=== PATIENT | female | born 1990 | race African-American/Black ===

== ENCOUNTER 2016-10-01 13:45 | Emergency (ER) | payer SELFPAY ==
[2016-10-01 13:50] VITALS: BP 159/103; PULSE 94; TEMP 99.1; BMI 34.5
[2016-10-01] MEDS ORDERED: SODIUM CHLORIDE 1,000 ML IV STA (14:25)
[2016-10-01] MEDS ORDERED: METOCLOPRAMIDE HCL INJECTION 10 MG/2 ML VIAL IVPB ONE (14:25)
--- NOTE | 2016-10-01 14:25 | PDOC ---
History of Present Illness - General Chief Complaint: Headache Stated Complaint: HEADACHE Time Seen by Provider: 10/01/16 13:58 History Source: Patient Exam Limitations: No Limitations - History of Present Illness Initial Comments: 26 yo F no PMH presents with headache for past 1 day. Headache localizes to the R parietal area. No associated N/V, photophobia, phonophobia, weakness, numbness. She has not had similar headaches in the past. She states she has been under high stress- she is having a very large wedding next week, and she also works nights, often getting very minimal sleep (2 hours). Her aunt checked her blood pressure this morning and noted that it was high, so she came to be evaluated. Past History - Past Medical History Allergies/Adverse Reactions: Allergies Allergy/AdvReac Type Severity Reaction Status Date / Time No Known Allergies Allergy Verified 10/01/16 14:44 Home Medications: Ambulatory Orders NK [No Known Home Medication] 10/01/16 Other medical history: DENIES - Psycho/Social/Smoking Cessation Hx Anxiety: No Suicidal Ideation: No Smoking History: Never smoked Hx Alcohol Use: No Drug/Substance Use Hx: No Substance Use Type: None Review of Systems - Review of Systems Able to Perform ROS?: Yes Comments:: GENERAL/CONSTITUTIONAL: No fever or chills. No weakness. HEAD, EYES, EARS, NOSE AND THROAT: No change in vision. No ear pain or discharge. No sore throat. CARDIOVASCULAR: No chest pain or shortness of breath. RESPIRATORY: No cough, wheezing, or hemoptysis. GASTROINTESTINAL: No nausea, vomiting, diarrhea or constipation. GENITOURINARY: No dysuria, frequency, or change in urination. MUSCULOSKELETAL: No joint or muscle swelling or pain. No neck or back pain. SKIN: No rash NEUROLOGIC: +Headache, vertigo, loss of consciousness, or change in strength/ sensation. ENDOCRINE: No increased thirst. No abnormal weight change. HEMATOLOGIC/LYMPHATIC: No anemia, easy bleeding, or history of blood clots. ALLERGIC/IMMUNOLOGIC: No hives or skin allergy. *Physical Exam - Vital Signs Last Vital Signs Temp Pulse Resp BP Pulse Ox 99.1 F 94 H 18 159/103 99 10/01/16 13:47 10/01/16 13:47 10/01/16 13:47 10/01/16 13:47 10/01/16 13:47 - Physical Exam Comments: GENERAL: Awake, alert, and fully oriented, in no acute distress HEAD: No signs of trauma EYES: PERRLA, EOMI, sclera anicteric, conjunctiva clear ENT: Auricles normal inspection, hearing grossly normal, nares patent, oropharynx clear without exudates. Moist mucosa NECK: Normal ROM, supple, no lymphadenopathy, JVD, or masses LUNGS: Breath sounds equal, clear to auscultation bilaterally. No wheezes, and no crackles HEART: Regular rate and rhythm, normal S1 and S2, no murmurs, rubs or gallops ABDOMEN: Soft, nontender, normoactive bowel sounds. No guarding, no rebound. No masses EXTREMITIES: Normal range of motion, no edema. No clubbing or cyanosis. No cords , erythema, or tenderness NEUROLOGICAL: Cranial nerves II through XII grossly intact. Normal speech, normal gait SKIN: Warm, Dry, normal turgor, no rashes or lesions noted. ED Treatment Course - LABORATORY CBC & Chemistry Diagram: 10/01/16 14:20 10/01/16 14:20 Medical Decision Making - Medical Decision Making 10/01/16 15:54 Pt reports improvement in symptoms. Reglan is almost finished infusing. Will DC when complete. *DC/Admit/Observation/Transfer Diagnosis at time of Disposition: Headache Qualifiers: Headache type: unspecified Headache chronicity pattern: acute headache Intractability: not intractable Qualified Code(s): R51 - Headache - Discharge Dispostion Disposition: HOME Condition at time of disposition: Stable Admit: No - Patient Instructions Printed Discharge Instructions: DI for Headache
[2016-10-01 14:54] LABS: ANION GAP 4 (8-16); CALCIUM 8.8 mg/dl (8.4-10.2); CO2 26 mmol/L (22-28); CREATININE 0.7 mg/dl (0.6-1.3); GLUCOSE,RANDOM 132 mg/dl (74-106)
[2016-10-01] MEDS ORDERED: KETOROLAC TROMETHAMINE 30 MG/1 ML VIAL IVPUSH ONE (14:58)
[2016-10-01 14:59] LABS: BASOPHIL 1.1 % (0-2.0); EOSINOPHIL 1.5 % (0-4.5); MCH 27.5 pg (25.7-33.7); MCHC 33.4 g/dl (32.0-36.0); MEAN CELL VOLUME 82.3 fl (80-96); MEAN PLT VOLUME 8.3 fl (7.5-11.1); NEUTROPHILS 51.6 % (42.8-82.8); PLATELET COUNT 303 K/MM3 (134-434); RDW 14.3 % (11.6-15.6)
[2016-10-01] MEDS ORDERED: KETOROLAC TROMETHAMINE 30 MG/1 ML VIAL ONE (15:02)
== END 2016-10-01 16:14 | disposition home or self-care (01) ==
LOC: FER 13:45
PROC: 3E0333Z Introduction of Anti-inflammatory into Peripheral Vein, Percutaneous Approach (ICD-10-PCS; principal; 2016-10-01)
PROC: 3E033GC Introduction of Other Therapeutic Substance into Peripheral Vein, Percutaneous Approach (ICD-10-PCS; 2016-10-01)
PROC: 3E0337Z Introduction of Electrolytic and Water Balance Substance into Peripheral Vein, Percutaneous Approach (ICD-10-PCS; 2016-10-01)
DX: R51 Headache (principal)
CPT/HCPCS: 36415; 80048; 84703; 85025; 99283-25

== ENCOUNTER 2023-06-07 14:08 | Emergency (ER) | payer OTHER ==
[2023-06-07 14:26] VITALS: BP 160/98; PULSE 96; RESP 18; TEMP 97.8; BMI 35.4
[2023-06-07] MEDS ORDERED: LIDOCAINE 4% PATCH TP ONE (16:57)
[2023-06-07] MEDS ORDERED: KETOROLAC TROMETHAMINE 30 MG/1 ML VIAL ONE (16:57)
[2023-06-07] MEDS: LIDOCAINE 4% PATCH TP ONE (17:04)
[2023-06-07] MEDS: KETOROLAC TROMETHAMINE 30 MG/1 ML VIAL IM ONE (17:04)
[2023-06-07] MEDS ORDERED: LIDOCAINE PATCH REMOVAL MC SCH (22:00)
== END 2023-06-07 18:07 | disposition home or self-care (01) ==
LOC: JERFT 14:08
PROC: 3E0233Z Introduction of Anti-inflammatory into Muscle, Percutaneous Approach (ICD-10-PCS; principal; 2023-06-07)
DX: S83.92XA Sprain of unspecified site of left knee, initial encounter (principal); W01.0XXA Fall on same level from slipping, tripping and stumbling without subsequent striking against object, initial encounter; Y99.0 Civilian activity done for income or pay; Y92.830 Public park as the place of occurrence of the external cause
CPT/HCPCS: 73562-TC-LT-FY; 99284-25